=== PATIENT | female | born 1950 | race Caucasian/White ===

== ENCOUNTER 2016-07-30 14:26 | Emergency (ER) | payer OTHER ==
[~2016-07-30] VITALS: Ht 165.1 cm; Wt 72.6 kg
[2016-07-30 16:15] LABS: BASOPHIL % 0.4 % (0-2); PLATELET COUNT 154 x10^3mcL (130-400); RED CELL DISTRIBUTION WIDTH 13.7 % (11.5-14.5)
[2016-07-30 16:17] LABS: CALCIUM 9.3 mg/dL (8.5-10.1); CARBON DIOXIDE 28.4 mmol/L (21-32); CHLORIDE SERUM 108 mmol/L (98-107); CREATININE SERUM 0.9 mg/dL (0.6-1.0); GFR1 > 60 mL/min; GLUCOSE SERUM 96 mg/dL (74-106); SODIUM SERUM 145 mmol/L (136-145)
[2016-07-30 16:23] LABS: ALKALINE PHOSPHATASE 99 U/L (46-116); ALT/SGPT 12 U/L (14-59); AST/SGOT 12 U/L (15-37); BILIRUBIN TOTAL 0.25 mg/dL (0.20-1.00); TOTAL PROTEIN, SERUM 7.7 g/dL (6.4-8.2)
[2016-07-30 16:35] LABS: ALBUMIN 3.3 g/dL (3.4-5.0)
[2016-07-30 16:44] LABS: UA SPECIFIC GRAVITY >=1.030 (1.005-1.035); microscopic required? YES; urine erythrocyte 1+ (NEGATIVE)
[2016-07-30 17:57] VITALS: BP 151/72
== END 2016-07-30 17:57 | disposition home or self-care (01) ==
LOC: ED 14:26
PROVIDERS: Emergency Medicine
DX: R07.9 Chest pain, unspecified (principal); M79.1 Myalgia; M54.9 Dorsalgia, unspecified; R03.0 Elevated blood-pressure reading, without diagnosis of hypertension; Z88.0 Allergy status to penicillin
CPT/HCPCS: J1885; Q0092

== ENCOUNTER 2016-08-03 14:00 | Emergency (ER) | payer OTHER ==
[2016-08-03 17:37] VITALS: BP 121/76
== END 2016-08-03 17:37 | disposition home or self-care (01) ==
LOC: ED 14:00
DX: M79.1 Myalgia (principal)
CPT/HCPCS: J1885; J3010; Q0162

== ENCOUNTER 2019-02-06 21:31 | Emergency (ER) | payer OTHER ==
[~2019-02-06] VITALS: Ht 162.6 cm; Wt 87.5 kg
[2019-02-06 21:35] VITALS: Ht 162.6 cm; Wt 87.5 kg
[2019-02-07 00:30] VITALS: BP 137/74
== END 2019-02-07 00:30 | disposition home or self-care (01) ==
LOC: ED 21:31
DX: M54.42 Lumbago with sciatica, left side (principal); M54.41 Lumbago with sciatica, right side; M51.36 Other intervertebral disc degeneration, lumbar region; F41.9 Anxiety disorder, unspecified; Z88.0 Allergy status to penicillin; Z98.890 Other specified postprocedural states; Z90.89 Acquired absence of other organs

== ENCOUNTER 2019-06-10 10:10 | Emergency (ER) | payer OTHER, SELFPAY ==
[~2019-06-10] VITALS: Ht 154.9 cm; Wt 71.7 kg
[2019-06-10 10:17] VITALS: Ht 154.9 cm; Wt 71.7 kg
[2019-06-10 11:05] VITALS: BP 161/81
== END 2019-06-10 11:05 | disposition home or self-care (01) ==
LOC: ED 10:10
DX: J02.9 Acute pharyngitis, unspecified (principal); Z20.828 Contact with and (suspected) exposure to other viral communicable diseases; Z88.0 Allergy status to penicillin

== ENCOUNTER 2019-11-09 12:03 | Emergency (ER) | payer OTHER ==
[~2019-11-09] VITALS: Ht 162.6 cm; Wt 73.0 kg
[2019-11-09 12:19] VITALS: Ht 162.6 cm; Wt 73.0 kg
[2019-11-09 13:32] LABS: CALCIUM 8.9 mg/dL (8.5-10.1); CARBON DIOXIDE 27.7 mmol/L (21-32); CHLORIDE SERUM 105 mmol/L (98-107); CREATININE SERUM 0.9 mg/dL (0.6-1.0); GFR1 > 60 mL/min; GLUCOSE SERUM 84 mg/dL (74-106); POTASSIUM SERUM 4.2 mmol/L (3.5-5.1); SODIUM SERUM 141 mmol/L (136-145)
[2019-11-09 14:21] VITALS: BP 130/67
== END 2019-11-09 14:21 | disposition home or self-care (01) ==
LOC: ED 12:03
PROVIDERS: Emergency Medicine
DX: M54.6 Pain in thoracic spine (principal); R10.9 Unspecified abdominal pain; M19.90 Unspecified osteoarthritis, unspecified site; Z98.890 Other specified postprocedural states; Z88.0 Allergy status to penicillin
CPT/HCPCS: J1885